=== PATIENT | male | born 1980 | race Two or more races ===

== ENCOUNTER 2021-04-06 04:28 | Day surgery (SDC) | payer OTHER ==
[2021-04-02 09:55] VITALS: BMI 25.7
[2021-04-06] MEDS ORDERED: MIDAZOLAM HCL 2 MG/2 ML SINGLE DOSE VIAL ONE (16:21)
[2021-04-06] MEDS ORDERED: ACETAMINOPHEN 325 MG TABLET (FP) ONE (18:23)
[2021-04-06 19:13] VITALS: BP 118/79; PULSE 68; TEMP 97.9
== END 2021-04-06 18:50 | disposition home or self-care (01) ==
LOC: JASU-SURG 04:28
PROVIDERS: ATTEND Urology
PROC: 0TF4XZZ Fragmentation in Left Kidney Pelvis, External Approach (ICD-10-PCS; principal; 2021-04-06 14:00)
DX: N20.0 Calculus of kidney (principal)

== ENCOUNTER 2022-04-10 16:53 | Emergency (ER) | payer OTHER ==
[2022-04-10 17:34] VITALS: BP 122/74; PULSE 77; RESP 18; TEMP 97.9; BMI 27.8
== END 2022-04-10 18:51 | disposition home or self-care (01) ==
LOC: JERFT 16:53 → JER 16:53 → JERFT 18:51
DX: T16.2XXA Foreign body in left ear, initial encounter (principal)
CPT/HCPCS: 99281-25